=== PATIENT | female | born 1980 | race Hispanic/Latino ===

== ENCOUNTER 2019-07-09 05:31 | Inpatient (IN) | payer OTHER ==
[2019-07-09] VITALS (10 sets, daily range): BP systolic 117–156; BP diastolic 72–104
[~2019-07-09] VITALS: Ht 149.9 cm; Wt 71.2 kg
[2019-07-09] MEDS ORDERED: LACTATED RINGERS 1000ML 1,000 ML IV PRN (06:26)
[2019-07-09] MEDS ORDERED: OXYTOCIN 10 USP UNITS/ML 20 UNIT in LACTATED RINGERS 1000ML 1,000 ML IV SCH (06:30)
[2019-07-09] MEDS: OXYTOCIN-LR 20 UNITS/1000 ML 1,000 ML IV SCH (06:30)
[2019-07-09 06:56] LABS: APPEARANCE,URINE Clear (CLEAR); BILIRUBIN,URINE Negative (NEGATIVE); COLOR,URINE Yellow (YELLOW); GLUCOSE, URINE (UA) Negative (NEGATIVE); KETONES,URINE Negative (NEGATIVE); LEUKOCYTE ESTERASE ,URINE Small (NEGATIVE); NITRATE,URINE Negative (NEGATIVE); OCCULT BLOOD,URINE Negative (NEGATIVE); PH,URINE 6.5 (5.0-8.0); PROTEIN,URINE Negative (NEGATIVE); UROBILINOGEN,URINE 0.2 mg/dL (0.2-1.0)
[2019-07-09 07:04] LABS: BACTERIA,URINE Rare /HPF (None Seen); RBC,URINE 0-1 /HPF (0-1); SQUAMOUS EPITHELIAL CELL,UR Few /HPF (0-2)
[2019-07-09 07:07] LABS: HEMATOCRIT 36.4 % (36-48); MEAN CORPUSCULAR HEMOGLOBIN 25.6 pg (27.0-33.0); MEAN CORPUSCULAR HGB CONC 30.5 g/dL (32.0-36.0); MEAN CORPUSCULAR VOLUME 84.1 fL (79-99); PLATELET COUNT (AUTO) 168 K/uL (130-400); RED BLOOD CELL COUNT(AUTO) 4.33 MIL/uL (4.00-5.50); RED CELL DISTRIBUTION WIDTH 15.7 % (11.0-15.5); WHITE BLOOD COUNT (AUTO) 7.4 K/uL (4.8-10.8)
[2019-07-09] MEDS ORDERED: PREN-196 PO (08:04)
[2019-07-09] MEDS: PROMETHAZINE HCL 25 MG/ML 1ML AMPULE IM SCH (11:15)
[2019-07-09] MEDS: MEPERIDINE-PF 50 MG/ML SYG IVP SCH (11:15)
[2019-07-09] MEDS ORDERED: MEPERIDINE-PF 50 MG/ML SYG ONE (11:17)
[2019-07-09] MEDS ORDERED: BENZOCAINE/LANOLIN/ALOE VERA 60 ML AEROSOL TP PRN (12:15)
[2019-07-09] MEDS ORDERED: LANOLIN 30GM OINTMENT TP PRN (12:15)
[2019-07-09] MEDS ORDERED: ACETAMINOPHEN 325 MG TAB PO PRN (12:15)
[2019-07-09] MEDS ORDERED: WITCH HAZEL 1 PAD TP PRN (12:15)
[2019-07-09] MEDS ORDERED: MEASLES/MUMPS/RUBELLA VACCINE, LIVE 0.5 ML/VIAL SQ PRN (12:15)
[2019-07-09] MEDS ORDERED: DIPH,PERTUSS(ACELL),TET VAC/PF 0.5 ML VIAL IM PRN (12:15)
[2019-07-09] MEDS ORDERED: ACETAMINOPHEN-CODEINE 300/30MG TAB PO PRN (12:15)
--- NOTE | 2019-07-09 12:15 | NUR ---
PATIENT RECEIVED FROM L/D AND REPORT RECEIVED FROM CHASE ARIAS RN. PATIENT WAS ORIENTED TO UNIT AND PLAN OF CARE. PATIENT INDICATED WANTING FLU AND TDAP VACCINES AND OBTAINED CONSENT FOR TDAP. PATIENT IS STABLE AND VITAL SIGNS ARE ELEVATED ON ADMISSION AND WAS INFORMED OF NURSE LIGHTNING ROD ERECTOR BEING AWARE OF ELEVATED BP.
[2019-07-09] MEDS: IBUPROFEN 600 MG TABLET PO PRN (13:46)
[2019-07-09] MEDS ORDERED: FLU VACC QS2019-20 36MOS UP/PF 60 MCG/0.5 ML ML IM ONE (14:00)
--- NOTE | 2019-07-09 15:30 | NUR ---
ATTEMPTED TO ASSIST PATIENT TO BATHROOM AND INDICATED NOT HAVING URGE TO VOID. QBL WAS 88CC. PATIENT WAS ALSO GIVEN FLU AND TDAP VACCINES REQUESTED.
[2019-07-09] MEDS: DOCUSATE SODIUM 100 MG CAP PO SCH (21:20)
[2019-07-10 03:50] VITALS: BP 130/89
[2019-07-10] MEDS: OXYTOCIN-LR 20 UNITS/1000 ML 1,000 ML IV SCH (04:20)
[2019-07-10] MEDS: PROMETHAZINE HCL 25 MG/ML 1ML AMPULE IM SCH (04:21)
[2019-07-10] MEDS: MEPERIDINE-PF 50 MG/ML SYG IVP SCH (04:21)
[2019-07-10 05:18] LABS: HEMATOCRIT 31.7 % (36-48); MEAN CORPUSCULAR HEMOGLOBIN 26.2 pg (27.0-33.0); MEAN CORPUSCULAR HGB CONC 31.2 g/dL (32.0-36.0); MEAN CORPUSCULAR VOLUME 83.9 fL (79-99); PLATELET COUNT (AUTO) 160 K/uL (130-400); RED BLOOD CELL COUNT(AUTO) 3.78 MIL/uL (4.00-5.50); RED CELL DISTRIBUTION WIDTH 15.8 % (11.0-15.5); WHITE BLOOD COUNT (AUTO) 10.1 K/uL (4.8-10.8)
[2019-07-10 06:09] LABS: HEPATITIS Bs ANTIGEN SCREEN P Negative (Negative)
[2019-07-10 07:29] VITALS: BP 126/81
[2019-07-10] MEDS ORDERED: IBUP-2070 PO (08:47)
[2019-07-10] MEDS: IBUPROFEN 600 MG TABLET PO PRN (09:03)
[2019-07-10] MEDS: DOCUSATE SODIUM 100 MG CAP PO SCH (09:03)
--- NOTE | 2019-07-10 11:30 | NUR ---
reinforced on discharge instructions, informed of the follow up appointment, prescription given, informed to call the doctor for any concerns, pt voiced understanding to all things discussed. Addendum: 07/10/19 at 1202 by KELLY CANNON RN Amended: Links added.
[2019-07-10 11:33] VITALS: BP 135/85
--- NOTE | 2019-07-10 13:45 | NUR ---
pt is dismissed, brought to private car via wheelchair, baby on her arms. pt is in stable condition Addendum: 07/10/19 at 1519 by KELLY CANNON RN Amended: Links added.
== END 2019-07-10 13:45 | disposition home or self-care (01) | DRG 807 ==
LOC: LDH 05:31 → WSH 12:04
PROVIDERS: ADMIT Obstetrics & Gynecology; ATTEND Obstetrics & Gynecology
PROC: 10E0XZZ Delivery of Products of Conception, External Approach (ICD-10-PCS; principal; 2019-07-09)
PROC: 3E02340 Introduction of Influenza Vaccine into Muscle, Percutaneous Approach (ICD-10-PCS; 2019-07-09)
PROC: 3E0234Z Introduction of Serum, Toxoid and Vaccine into Muscle, Percutaneous Approach (ICD-10-PCS; 2019-07-09)
PROC: 3E0134Z Introduction of Serum, Toxoid and Vaccine into Subcutaneous Tissue, Percutaneous Approach (ICD-10-PCS; 2019-07-09)
DX: O77.0 Labor and delivery complicated by meconium in amniotic fluid (principal); Z37.0 Single live birth; Z3A.38 38 weeks gestation of pregnancy; Z23 Encounter for immunization
CPT/HCPCS: 36415; 81001; 85027; 86592; 86850; 86900; 86901; 87340; 90715; G0378; J2175; J2590; Q2035